=== PATIENT | male | born 1955 | race Caucasian/White ===

== ENCOUNTER → 2017-11-28 08:40 | Outpatient (CLI) | payer OTHER, SELFPAY ==
--- NOTE | 2017-11-28 08:43 | ECHOD_ITS ---
Reason For Study: ARRHYTHMIA Procedure This was a 2D Doppler, Color Flow transthoracic echocardiogram. Exam performed in department. Left Ventricle Normal LV size. Left ventricular systolic function is normal. The estimated ejection fraction is 65 %. Stage 1 diastolic dysfunction. No regional wall motion abnormalities noted. Right Ventricle Normal RV size. Normal systolic function. Atria Normal left atrium. Normal right atrium. Mitral Valve Normal mitral valve. Tricuspid Valve Normal tricuspid valve. Mild tricuspid valve insufficiency. Pulmonary artery systolic pressure is 24 mmHg. Aortic Valve Trisinus/trileaflet aortic valve. Mild (1+) eccentric aortic valve insufficiency. Pulmonic Valve Normal pulmonic valve. Great Vessels Normal aortic root. The pulmonary artery is normal size. Normal inferior vena cava. Pericardium/Pleural No pericardial effusion. MMode/2D Measurements & Calculations LVIDd: 5.2 cm IVSd: 1.2 cm Ao root diam: 3.6 cm LVIDs: 3.5 cm LVPWd: 1.1 cm LA dimension: 4.4 cm RVDd: 4.2 cm FS: 32.7 % LAV(MOD-bp): 63.9 ml LA A4 area: 21.7 cm2 RA A4 area: 26.7 cm2 LAV(MOD-bp) Indexed: 31.0 ml/m2 LAV(MOD-sp2): 61.4 ml LAV(MOD-sp4): 65.1 ml Doppler Measurements & Calculations MV E max michele: 74.1 cm/sec Lat Peak E' Michele: 11.0 cm/sec Med Peak E' Michele: 9.3 cm/sec MV A max michele: 92.0 cm/sec E/E' lat: 6.8 E/E' med: 8.0 MV E/A: 0.81 Ao V2 max: 138.8 cm/sec AI max michele: 432.7 cm/sec LV V1 max: 114.0 cm/sec Ao max P.7 mmHg AI max P.0 mmHg LV V1 max P.2 mmHg AI dec slope: 153.5 cm/sec2 AI P1/2t: 825.4 msec PA V2 max: 82.1 cm/sec TR max michele: 222.1 cm/sec TR max P.8 mmHg Interpretation Summary Normal LV size. Left ventricular systolic function is normal. The estimated ejection fraction is 65 %. Stage 1 diastolic dysfunction. Mild tricuspid valve insufficiency. Ordering Physician: Daniel Reyes Referring Physician: Christopher Smyth Performed By: Kira Haddad, MICHAEL, RVT
== END ==
PROVIDERS: Family Provider Preventive Medicine Occupational Medicine; PCP Preventive Medicine Occupational Medicine; Referring Provider Internal Medicine Cardiovascular Disease; Visit Provider Internal Medicine Cardiovascular Disease
DX: I10 Essential (primary) hypertension (principal); I47.1 Supraventricular tachycardia
CPT/HCPCS: 93306

== ENCOUNTER → 2019-01-14 12:03 | Outpatient (CLI) | payer OTHER, SELFPAY ==
[2017-11-19 15:15] VITALS: BMI 25.2
--- NOTE | 2019-01-14 12:08 | RAD_ITS ---
STUDY: X-RAY - LUMBAR SPINE REASON FOR EXAM: Male, 63 years old. Low back pain. TECHNIQUE: 5 view(s) of the lumbar spine were obtained. COMPARISON: None FINDINGS: Normal lumbar lordosis. There is no substantial scoliosis. Minimal degenerative retrolisthesis of L2 on L3. Normal vertebral bodies and endplates. Moderately pronounced L5-S1 disc space height narrowing. Mild L2-L3 and L4-L5 disc space height narrowing. The soft tissue structures are unremarkable. RAD/L/S Spine Min 4 Views IMPRESSION: 1. No acute fracture or acute osseous abnormality of the lumbar spine. 2. Minimal degenerative retrolisthesis of L2 on L3 with mild disc space height narrowing. 3. Moderately pronounced L5-S1 disc space height narrowing. 4. Mild L4-L5 disc space height narrowing. Electronically Signed: Stevo Kumar MD at 13:13 EST , Service support ,
== END ==
PROVIDERS: Family Provider Family Medicine; PCP Family Medicine; Referring Provider Family Medicine; Visit Provider Family Medicine
DX: M54.5 Low back pain (principal)
CPT/HCPCS: 72110

== ENCOUNTER → 2019-02-17 10:40 | Outpatient (CLI) | payer OTHER, SELFPAY ==
[2019-02-17 07:37] VITALS: BMI 23.8
[2019-02-17 12:04] LABS: AST(SGOT) 25 U/L (15-37); Alanine Aminotransfer ALT/SGPT 35 U/L (16-61); Albumin, Serum 4.1 g/dL (3.2-5.0); Alkaline Phosphatase 78 U/L (45-117); Anion Gap 3 (5-15); BUN 10 mg/dL (7-18); BUN/Creat Ratio 11.1 RATIO (10-20); Calcium,Total 9.1 mg/dL (8.5-10.1); Chloride 108 mmol/L (98-107); Cholesterol 130 mg/dL (200); EST Glomerular Filtration Rate 91 mL/min (>60); Est Glom Filt Rate - Afr Amer 110 mL/min (>60); Globulin 3.3 g/dL (2.2-4.2); Glucose 86 mg/dL (74-106); High Density Lipoprotein 42 mg/dL; Potassium 3.8 mmol/L (3.5-5.1); Protein, Total 7.4 g/dL (6.4-8.2); Sodium Level 141 mmol/L (136-145); Thyroid Stim Hormone (TSH) 0.92 uIU/mL (0.358-3.74); Triglycerides 143 mg/dL; Very Low Density Lipoprotein 29 mg/dL (5-40)
== END ==
PROVIDERS: Family Provider Family Medicine; PCP Family Medicine; Referring Provider Internal Medicine Cardiovascular Disease; Visit Provider Internal Medicine Cardiovascular Disease
DX: E78.5 Hyperlipidemia, unspecified (principal); I47.1 Supraventricular tachycardia; I10 Essential (primary) hypertension
CPT/HCPCS: 36415; 80048; 80061; 80076; 83735; 84443

== ENCOUNTER → 2022-03-20 | Outpatient (CLI) | payer OTHER, SELFPAY ==
[2022-03-20 10:29] LABS: Vitamin D,25 Hydroxy 53.5 ng/mL
[2022-03-20 11:22] LABS: ALB/GLOB Ratio 1.1 RATIO (0.9-2.4); AST(SGOT) 21 U/L (15-37); Alanine Aminotransfer ALT/SGPT 28 U/L (16-61); Albumin, Serum 3.8 g/dL (3.2-5.0); Alkaline Phosphatase 61 U/L (45-117); Anion Gap 8 (5-15); BUN 10 mg/dL (7-18); BUN/Creat Ratio 12.3 RATIO (10-20); Calcium,Total 9.1 mg/dL (8.5-10.1); Chloride 106 mmol/L (98-107); Cholesterol 114 mg/dL (200); Creatinine, Serum 0.82 mg/dL (0.70-1.30); EST Glomerular Filtration Rate 100 mL/min (>60); Est Glom Filt Rate - Afr Amer 121 mL/min (>60); Globulin 3.4 g/dL (2.2-4.2); Glucose 97 mg/dL (74-106); High Density Lipoprotein 37 mg/dL; PSA,Total - Annual Screen 2.11 ng/mL (0.00-4.00); Potassium 4.3 mmol/L (3.5-5.1); Protein, Total 7.2 g/dL (6.4-8.2); Sodium Level 141 mmol/L (136-145); Triglycerides 173 mg/dL; Very Low Density Lipoprotein 35 mg/dL (5-40)
== END | disposition home or self-care (01) ==
PROVIDERS: PCP Nurse Practitioner Primary Care; Referring Provider Nurse Practitioner Primary Care; Visit Provider Nurse Practitioner Primary Care
DX: I10 Essential (primary) hypertension (principal); E78.2 Mixed hyperlipidemia; Z12.5 Encounter for screening for malignant neoplasm of prostate; E55.9 Vitamin D deficiency, unspecified
CPT/HCPCS: 36415; 80053; 80061; 82306; 84153; G0103

== ENCOUNTER 2023-08-31 13:30 | Emergency (ER) | payer OTHER, SELFPAY ==
[2023-08-31 13:30] VITALS: BP 134/77; PULSE 63; RESP 14; TEMP 36.8; O2SAT 98; BMI 25.2
--- NOTE | 2023-08-31 13:40 | EX.ED.UPPERE ---
HPI History of Present Illness Chief Complaint: Upper Extremity Injury Informant: patient Narrative Narrative: Patient presents secondary to left upper arm injury. He was lifting some water softener tablets when he felt a pop in his left upper arm. He has a focal hard area of swelling in the left upper arm. He is right-hand dominant. No paresthesias. [facility] Medical History Vitamin D deficiency Left inguinal hernia Tachycardia Dysphagia Essential (primary) hypertension Paroxysmal supraventricular tachycardia Hyperlipidemia GERD (gastroesophageal reflux disease) Renal insufficiency Hiatal hernia Asthma Depression Home Medications ?Medication ?Instructions ?Recorded ?Last Taken ?Type coenzyme Q10 100 mg capsule (Co 100 mg PO QDAY 09/17/17 Unknown History Q-10) multivitamin 1 tab PO QAM 09/17/17 Unknown History albuterol sulfate 90 mcg/actuation 2 puff inhalation Q6H PRN 01/12/20 Unknown History aerosol inhaler loratadine 10 mg tablet (Claritin) 10 mg PO DAILY 01/12/20 Unknown History lysine 1,000 mg tablet 1,000 mg PO DAILY 01/12/20 Unknown History super beta prostate 2 tab PO DAILY 01/12/20 Unknown History atorvastatin 10 mg tablet (Lipitor) 10 mg PO QDAY #90 tabs 12/27/21 Unknown Rx metoprolol succinate 25 mg 25 mg PO QDAY #90 tabs 12/27/21 Unknown Rx tablet,extended release 24 hr (Toprol XL) ascorbic acid (vitamin C) 1,000 mg 1 g PO Q6H 04/18/22 Unknown History tablet cholecalciferol (vitamin D3) 50 50 mcg PO DAILY 04/18/22 Unknown History mcg (2,000 unit) capsule valacyclovir 1 gram tablet ea PO 07/03/22 Unknown History lisinopril 10 mg tablet 10 mg PO QDAY #90 tabs 11/26/22 Unknown Rx lansoprazole 15 mg capsule,delayed 15 mg PO QDAY PRN 12/25/22 Unknown History release (Prevacid) zinc gluconate 50 mg tablet 50 mg PO DAILY 12/25/22 Unknown History Allergy/AdvReac Type Severity Reaction Status Date / Time diphenhydramine (From Allergy aggitated Verified 08/31/23 13:31 Benadryl Allergy) neomycin (From Neosporin AdvReac rash Verified 08/31/23 13:31 ([id number])) polymyxin B (From Neosporin AdvReac rash Verified 08/31/23 13:31 ([id number])) Family History Other Adopted Surgical History History of back surgery History of right knee surgery Social History Smoking Status: Never smoker alcohol intake: never ROS ROS ED Constitutional Constitutional ED: Denies chills or fever(s) Eyes Eyes: Denies change in vision ENT ENT ED: Denies sore throat Cardiovascular Cardiovascular: Denies chest pain Respiratory/Chest Respiratory/Chest: Denies cough or dyspnea Gastrointestinal Gastrointestinal: Denies abdominal pain, nausea or vomiting Musculoskeletal Musculoskeletal: Reports extremity pain; Denies back pain Integumentary Denies Abrasions or rash Neurologic Neurologic: Denies headache(s), paresthesias or weakness Allergic/Immunologic Allergic/Immunologic ED: Denies lip swelling or urticaria EXAM Physical Exam Const Vital Signs: 08/31/23 13:30 Temperature 98.2 F Temperature Source Temporal Pulse Rate 63 Respiratory Rate 14 Blood Pressure 134/77 H Blood Pressure Mean 96 Pulse Ox 98 Oxygen Delivery Method Room Air Positive well nourished and well developed General Appearance ED: well developed HEENT Reports moist mucous membranes Eyes EOMs intact bilaterally Chest Wall inspection of chest normal and palpation of chest normal Resp normal respiratory effort and clear to auscultation bilaterally Cardio regular rate and regular rhythm GI non-tender Palpation: soft Extremity Extremity Narrative: Mild tenderness location along the left bicep. No overlying skin change. Patient does have focal swelling on the left compared to the right arm consistent with a bicep tendon tear. Neuro oriented x3, moves all extremities, no focal motor deficits and no sensory deficits noted Psych mental status grossly normal MDM MDM MDM Narrative Medical decision making narrative: Left humerus x-rays to be obtained. I did tell the patient that we are not able to see a muscle tear on the x-ray, however in looking for any piece of bone fragment may have been pulled off with a tendon tear. Treatment and Re-Evaluation Narrative: Left humerus x-ray per my interpretation reveals no acute findings. Radiology interpretation reviewed and agrees. Patient be given a sling that he can wear as needed. He has seen [facility] in the past and will be referred to Dr. Geiger who is on-call for the group today. Return instructions provided. Patient comfortable with the plan. Discharge Plan Triage Chief Complaint: Upper Extremity Injury ED Provider: T[place] Fierro Dx/Rx/DC Orders Clinical Impression: Biceps tendon tear Instructions: ED Muscle Strain, Extremity Prescriptions: No Action loratadine [Claritin] 10 mg tablet 10 mg PO DAILY lysine 1,000 mg tablet 1,000 mg PO DAILY super beta prostate 2 tab PO DAILY albuterol sulfate 90 mcg/actuation HFA aerosol inhaler 2 puff INHALATION Q6H PRN ascorbic acid (vitamin C) 1,000 mg tablet 1 g PO Q6H cholecalciferol (vitamin D3) 50 mcg (2,000 unit) capsule 50 mcg PO DAILY valacyclovir 1 gram tablet PO Patient Comments: TAKE 1 TABLET EVERY DAY FOR 1 WEEK NEEDED FOR FLARES zinc gluconate 50 mg tablet 50 mg PO DAILY multivitamin tablet 1 tab PO QAM coenzyme Q10 [Co Q-10] 100 mg capsule 100 mg PO QDAY atorvastatin [Lipitor] 10 mg tablet 10 mg PO QDAY Qty: 90 0RF metoprolol succinate [Toprol XL] 25 mg tablet extended release 24 hr 25 mg PO QDAY Qty: 90 0RF lisinopril 10 mg tablet 10 mg PO QDAY Qty: 90 3RF lansoprazole [Prevacid] 15 mg capsule,delayed release(DR/EC) 15 mg PO QDAY PRN Primary Care Provider: Radha Chapin NP Referrals: Kin Geiger MD [Med Staff - Active Staff] - 5-7 Days Radha Chapin NP, [employer] [Primary Care Provider] - Print Language: Maori Disposition Disposition: Home, Self Care
--- NOTE | 2023-08-31 13:45 | RAD_ITS ---
INDICATION: injury, pain EXAMINATION/TECHNIQUE: X-RAY - LEFT XR Humerus Min 2 Views 2 VIEWS COMPARISON: No relevant prior comparison study available FINDINGS: SOFT TISSUES: No soft tissue swelling or gas. No radiopaque foreign body. BONES/JOINTS: No evidence of acute fracture or dislocation. Normal alignment. Mild degenerative arthrosis of the glenohumeral joint.. No sclerotic or destructive changes observed. RAD/Humerus min 2 Views IMPRESSION: No evidence of acute fracture. Electronically Signed: Partha Dalton MD at 14:03 EDT ,
== END 2023-08-31 14:20 | disposition home or self-care (01) ==
LOC: ED 14:16
PROVIDERS: Emergency Provider Emergency Medicine; PCP Registered Nurse; Visit Provider Emergency Medicine
DX: S46.212A Strain of muscle, fascia and tendon of other parts of biceps, left arm, initial encounter (principal); I10 Essential (primary) hypertension; E78.5 Hyperlipidemia, unspecified; X50.0XXA Overexertion from strenuous movement or load, initial encounter; K21.9 Gastro-esophageal reflux disease without esophagitis; J45.909 Unspecified asthma, uncomplicated
CPT/HCPCS: 73060; 99283

== ENCOUNTER → 2023-11-04 | Outpatient (CLI) | payer OTHER, SELFPAY ==
[2023-11-04 09:47] LABS: Hematocrit 41.6 % (40-54); Hemoglobin 13.8 g/dL (13.0-16.5); Mean Corp Hgb Conc 33.2 g/dL (32-36); Mean Corpuscular Hgb 30.5 pg (27.0-32.0); Mean Corpuscular Volume 91.8 fL (80-94); Mean Platelet Vol. 10.9 fl (6.2-12.0); Platelet Count 177 K/mm3 (150-450); RBC Distribution Width CV 12.9 % (11.6-14.6); RBC Distribution Width SD 43.2 fl (35.1-43.9); Red Blood Count 4.53 M/mm3 (4.6-6.2); White Blood Count 6.3 K/mm3 (4.4-11.0)
[2023-11-04 10:30] LABS: ALB/GLOB Ratio 1.2 RATIO (0.9-2.4); AST(SGOT) 20 U/L (15-37); Alanine Aminotransfer ALT/SGPT 28 U/L (16-61); Albumin, Serum 3.7 g/dL (3.2-5.0); Alkaline Phosphatase 64 U/L (45-117); Anion Gap 4 (5-15); BUN 11 mg/dL (7-18); BUN/Creat Ratio 13.8 RATIO (10-20); Calcium,Total 8.8 mg/dL (8.5-10.1); Chloride 105 mmol/L (98-107); Cholesterol 99 mg/dL (200); EST Glomerular Filtration Rate 103 mL/min (>60); Est Glom Filt Rate - Afr Amer 124 mL/min (>60); Globulin 3.2 g/dL (2.2-4.2); Glucose 101 mg/dL (74-106); High Density Lipoprotein 39 mg/dL; PSA,Total - Annual Screen 2.39 ng/mL (0.00-4.00); Potassium 4.1 mmol/L (3.5-5.1); Protein, Total 6.9 g/dL (6.4-8.2); Sodium Level 138 mmol/L (136-145); Triglycerides 81 mg/dL; Very Low Density Lipoprotein 16 mg/dL (5-40)
== END | disposition home or self-care (01) ==
LOC: LAB 09:11
PROVIDERS: PCP Registered Nurse; Referring Provider Registered Nurse; Visit Provider Registered Nurse
DX: Z12.5 Encounter for screening for malignant neoplasm of prostate (principal); I10 Essential (primary) hypertension
CPT/HCPCS: 36415; 80053; 80061; 84153; 85027; G0103